=== PATIENT | male | born 1970 | race Caucasian/White ===

== ENCOUNTER 2017-09-13 11:33 | Emergency (ER) | payer BC, SELFPAY | END 2017-09-13 13:14 | disposition left against medical advice (07) | LOC: ER 11:56 → UTC 12:47 | PROVIDERS: Emergency Provider Nurse Practitioner; PCP Emergency Medicine | DX: Z53.29 Procedure and treatment not carried out because of patient's decision for other reasons (principal) ==

== ENCOUNTER → 2017-12-11 16:37 | Outpatient (REF) | payer BC, SELFPAY ==
[2017-12-11 18:47] LABS: Basophils # 0.1 K/mm3 (0-0.2); Basophils % 0.6 % (0.1-2.0); Eosinophils # 0.3 K/mm3 (0.0-0.4); Eosinophils % 3.1 % (0.1-12.0); Hematocrit 49.1 % (42.0-52.0); Hemoglobin 16.2 g/dL (14.1-18.0); Lymphocytes # 2.1 K/mm3 (0.7-4.5); Lymphocytes % 25.2 K/mm3 (10-50); Mean Corpuscular HGB Conc 32.9 g/dL (31.8-35.4); Mean Corpuscular Hemoglobin 30.5 pg (27.0-31.2); Mean Corpuscular Volume 92.5 fl (80-94); Mean Platelet Volume 8.9 fl (7.4-10.4); Monocytes # 0.4 K/mm3 (0.1-1.0); Monocytes % 4.8 % (1.7-9.3); Neutrophils # 5.6 K/mm3 (1.8-7.8); Neutrophils % 66.3 % (37.0-80.0); Platelet Count 223 K/mm3 (142-424); Red Blood Count 5.31 M/mm3 (4.60-6.20); Red Cell Distribution Width 12.9 % (11.5-17.5); White Blood Count 8.5 K/mm3 (4.8-10.8)
[2017-12-11 19:17] LABS: Alanine Aminotransferase 36 U/L (12-78); Albumin Level 4.1 gm/dL (3.4-5.0); Albumin/Globulin Ratio 1.2 (1.1-1.8); Alkaline Phosphatase 66 U/L (46-116); Anion Gap 14.1 mEq/L (5-15); Aspartate Amino Transferase 24 U/L (15-37); Bilirubin,Total 0.3 mg/dL (0.2-1.0); Blood Urea Nitrogen 14 mg/dL (7-18); Calcium 9.2 mg/dL (8.5-10.1); Carbon Dioxide 28 mmol/L (21.0-32.0); Chloride 103 mmol/L (98-107); Creatinine,Serum 1.11 mg/dL (0.70-1.30); Estimated Glomerular Filt Rate 72 ml/min (>60); GFR (African American) 87 ML/MIN (>60); Globulin 3.4 gm/dl (1.3-3.2); Glucose 81 mg/dL (74-106); Potassium 4.1 mmoL/L (3.5-5.1); Sodium 141 mmol/L (136-145); Total Protein,Serum 7.5 gm/dL (6.4-8.2)
[2017-12-13 05:14] LABS: Hep A Ab, IgM Negative (Negative); Hepatitis B Core Antibody IgM Negative (Negative); Hepatitis B Surface Antigen Negative (Negative)
[2017-12-13 16:33] LABS: HIV Screen 4th Generation wRfx Non Reactive (Non Reactive); Hepatitis C Antibody 0.1 s/co ratio (0.0-0.9); Rapid Plasma Reagin Ab Titer Non Reactive (NonRea<1:1)
[2017-12-14 09:11] LABS: Neisseria gonorrhoeae, NAA Negative (Negative)
== END ==
LOC: LAB 16:37
PROVIDERS: Visit Provider Emergency Medicine
DX: R53.83 Other fatigue (principal); Z20.2 Contact with and (suspected) exposure to infections with a predominantly sexual mode of transmission
CPT/HCPCS: 80053; 80074; 85025; 86592; 86703; 87491; 87591; G0432

== ENCOUNTER → 2018-08-15 10:32 | Outpatient (CLI) | payer BC, SELFPAY ==
--- NOTE | 2018-08-15 10:35 | XR_ITS ---
XR shoulder RT min 2V HISTORY: ITS.REASON: Rt shoulder and neck pain ORDERING PHYSICIAN: Lisbeth Perez MD PATIENT AGE: 48 years Comparison: 10/17/2016 FINDINGS: No fracture or dislocation. No lytic or blastic change. There are mild hypertrophic changes of the acromioclavicular joint. There is an old right second rib fracture laterally. IMPRESSION: 1. No change with no acute finding. 2. Mild acromioclavicular arthropathy with hypertrophy. 3. Old right second rib fracture
== END ==
PROVIDERS: PCP Emergency Medicine; Visit Provider Orthopaedic Surgery
DX: M25.511 Pain in right shoulder (principal)
CPT/HCPCS: 73030

== ENCOUNTER → 2018-08-21 16:12 | Outpatient (CLI) | payer BC, SELFPAY ==
--- NOTE | 2018-08-21 16:14 | MR_ITS ---
MR cervical spine wo con, MR 3-d myelogram/MRCP HISTORY: Neck pain with bilateral shoulder pain ITS.REASON: neck pain ORDERING PHYSICIAN: John Uribe MD PATIENT AGE: 48 years Comparison: None TECHNIQUE: Standard multiplanar multiecho sequences are performed without contrast. 3-D MIP and myelographic images are also rendered and reviewed FINDINGS: There is normal alignment. The craniocervical junction has an unremarkable appearance. C2-C3: Unremarkable. C3-C4: Bulging disc is present eccentric toward the left with a disc osteophyte complex in the left uncovertebral region causing left foraminal narrowing. C4-C5: Bulging disc with small central disc protrusion abutting the anterior aspect of the cord with only minimal flattening of the cord. C5-C6: Mild degenerative disc disease with bulging disc with a small broad-based right paracentral disc protrusion with right lateral recess narrowing and minimal flattening of the cord anteriorly. There is bilateral uncovertebral hypertrophy with bilateral foraminal narrowing greater on the left. There is narrowing of the canal at this level measuring 9 mm. C6-C7: Degenerative disc disease with bulging disc and a small broad-based central and left paracentral disc extrusion which is causing mild anterior impingement upon the left aspect of the cord with mild flattening of the cord and moderate left lateral recess and foraminal narrowing. Canal stenosis is present at this level is 8 mm. C7-T1: There is degenerative disc disease with bulging disc with bulging disc and a small left paracentral disc protrusion. This is causing moderate left lateral recess narrowing with left-sided foraminal narrowing. T1-T2: Sagittal images show a central disc herniation with mild superior extrusion. Axial images were not obtained of this area. Consider MRI of the T-spine for further evaluation as are also appears to be a central disc protrusion at T2-T3. IMPRESSION: Abnormal MRI of the cervical spine with multilevel cervical spondylosis with bulging discs, disc osteophyte complexes, and disc protrusions. C3-C4: Bulging disc is present eccentric toward the left with a disc osteophyte complex in the left uncovertebral region causing left foraminal narrowing. C4-C5: Bulging disc with small central disc protrusion abutting the anterior aspect of the cord with only minimal flattening of the cord. C5-C6: Mild degenerative disc disease with bulging disc with a small broad-based right paracentral disc protrusion with right lateral recess narrowing and minimal flattening of the cord anteriorly. There is bilateral uncovertebral hypertrophy with bilateral foraminal narrowing greater on the left. There is narrowing of the canal at this level measuring 9 mm. C6-C7: Degenerative disc disease with bulging disc and a small broad-based central and left paracentral disc extrusion which is causing mild anterior impingement upon the left aspect of the cord with mild flattening of the cord and moderate left lateral recess and foraminal narrowing. Canal stenosis is present at this level is 8 mm. C7-T1: There is degenerative disc disease with bulging disc with bulging disc and a small left paracentral disc protrusion. This is causing moderate left lateral recess narrowing with left-sided foraminal narrowing. T1-T2: Sagittal images show a central disc herniation with mild superior extrusion. Axial images were not obtained of this area. Consider MRI of the T-spine for further evaluation as are also appears to be a central disc protrusion at T2-T3.
== END ==
PROVIDERS: PCP Emergency Medicine; Visit Provider Emergency Medicine
DX: M54.12 Radiculopathy, cervical region (principal)
CPT/HCPCS: 72141; 76376

== ENCOUNTER → 2018-09-17 16:05 | Outpatient (CLI) | payer BC, SELFPAY ==
--- NOTE | 2018-09-17 16:07 | MR_ITS ---
MR thoracic spine wo con HISTORY: Bilateral shoulder pain and mid back pain. X 15 Years. No HX back surgery. ITS.REASON: r/o disc bulge as recommended on MRI Cspine ORDERING PHYSICIAN: John Uribe MD PATIENT AGE: 48 years Comparison: 08/21/2018 TECHNIQUE: Standard multiplanar multiecho sequences are performed without contrast. 3-D MIP and myelographic images are also rendered and reviewed FINDINGS: There is normal alignment. No obvious fracture or dislocation evident. Multilevel abnormalities are present and described below. C7-T1: Degenerative disc disease with broad-based central and left paracentral disc protrusion versus disc osteophyte complex eccentric toward the left causing bilateral lateral recess narrowing and bilateral foraminal narrowing. This is more extensive on the left there is narrowing of the canal at this level at 10 mm. T1-T2: Degenerative disc disease with bulging disc along with a broad-based right paracentral disc protrusion/disc osteophyte complex causing severe right-sided lateral recess narrowing and moderate right-sided foraminal narrowing. T2-T3: Degenerative disc disease with broad-based central and right paracentral disc protrusion versus disc osteophyte complex with narrowing of the canal severe right-sided lateral recess narrowing along with moderate right-sided foraminal narrowing. There is some impingement upon the cord anteriorly with mild flattening of the cord T3-T4: Degenerative disc disease with small central disc protrusion without impingement. T4-T5: Minimal right paracentral disc protrusion/disc osteophyte complex. T5-T6: Unremarkable. T6-T7: Small right paracentral disc protrusion with minimal superior extrusion. There is some mild flattening of the anterior right aspect of the cord from this disc. T7-T8: Degenerative disc disease with a small broad-based left paracentral disc osteophyte complex with mild flattening of the cord anteriorly on the left. T8-T9: Unremarkable. T9-T10: There is a broad-based central and right paracentral disc protrusion with minimal superior extrusion of the disc. There is some minimal flattening of the cord anteriorly on the right. T10-T11: Degenerative disc disease with mild facet and ligamentum flavum hypertrophy with moderate bilateral foraminal narrowing. T11-T12: Unremarkable other than mild degenerative disc disease. IMPRESSION: Abnormal MRI of the thoracic spine with multilevel degenerative disc disease along with disc osteophyte complexes and disc herniations with narrowing of the canal along with some flattening of the cord at multiple levels. Please see above for detailed description at each level.
== END ==
PROVIDERS: PCP Emergency Medicine; Visit Provider Emergency Medicine
DX: M25.511 Pain in right shoulder (principal); M50.20 Other cervical disc displacement, unspecified cervical region; M54.2 Cervicalgia
CPT/HCPCS: 72146

== ENCOUNTER → 2018-09-24 13:04 | Outpatient (POV) | payer BC, SELFPAY | PROVIDERS: Visit Provider Specialist | DX: M54.2 Cervicalgia (principal); M54.12 Radiculopathy, cervical region; M25.511 Pain in right shoulder | CPT/HCPCS: 95886; 95908 ==

== ENCOUNTER → 2020-08-26 17:06 | Outpatient (CLI) | payer BC, SELFPAY ==
[2020-08-26 17:33] LABS: Basophils # 0.1 K/mm3 (0-0.2); Basophils % 0.8 % (0.1-2.0); Eosinophils # 0.3 K/mm3 (0.0-0.4); Eosinophils % 3.5 % (0.1-12.0); Hematocrit 47.3 % (42.0-52.0); Hemoglobin 15.8 g/dL (14.1-18.0); Lymphocytes # 1.8 K/mm3 (0.7-4.5); Mean Corpuscular HGB Conc 33.4 g/dL (31.8-35.4); Mean Corpuscular Hemoglobin 30.8 pg (27.0-31.2); Mean Corpuscular Volume 92.2 fl (80-94); Mean Platelet Volume 8.7 fl (7.4-10.4); Monocytes # 0.4 K/mm3 (0.1-1.0); Neutrophils # 6.8 K/mm3 (1.8-7.8); Neutrophils % 72.6 % (37.0-80.0); Platelet Count 255 K/mm3 (142-424); Red Blood Count 5.12 M/mm3 (4.60-6.20); Red Cell Distribution Width 14.1 % (11.5-17.5); White Blood Count 9.4 K/mm3 (4.8-10.8)
[2020-08-26 17:52] LABS: Alanine Aminotransferase 61 U/L (12-78); Albumin Level 4.5 g/dl (3.5-5.0); Albumin/Globulin Ratio 1.4 (1.1-1.8); Alkaline Phosphatase 99 U/L (38-126); Anion Gap 16.1 mEq/L (5-15); Aspartate Amino Transferase 63 U/L (17-59); Bilirubin,Total 0.5 mg/dl (0.2-1.3); Blood Urea Nitrogen 12 mg/dl (9-20); Calcium 9.8 mg/dl (8.4-10.2); Carbon Dioxide 26 mmol/L (22.0-30.0); Chloride 103 mmol/L (98-107); Chol/HDL Ratio 5.8 (1-3.5); Cholesterol 204 mg/dl (140-200); Estimated Glomerular Filt Rate 80 ml/min (>60); GFR (African American) 97 ML/MIN (>60); Globulin 3.2 g/dL (1.3-3.2); Glucose 160 mg/dl (74-100); HDL Cholesterol 35 mg/dl (40-60); Potassium 4.1 mmoL/L (3.5-5.1); Sodium 141 mmol/L (136-145); Total Protein,Serum 7.7 g/dl (6.3-8.2); Triglycerides 267 mg/dl (30-150); VLDL Cholesterol 53 mg/dL (0-40)
[2020-08-26 18:03] LABS: Direct LDL Cholesterol 142.19 mg/dL (100-129)
[2020-08-26 18:08] LABS: 25-OH Vitamin D, Total 36.7 ng/mL (30-100)
[2020-08-26 18:09] LABS: Free T4 (Free Thyroxine) 1.16 ng/dl (0.78-2.19)
[2020-08-26 18:22] LABS: Thyroid Stimulating Hormone 1.14 uIU/mL (0.465-4.68)
[2020-08-27 11:38] LABS: Hemoglobin A1C 7.2 % (4.0-6.0)
== END ==
PROVIDERS: Visit Provider Emergency Medicine
DX: R73.09 Other abnormal glucose (principal); E66.3 Overweight; E55.9 Vitamin D deficiency, unspecified
CPT/HCPCS: 80053; 80061; 82306; 83036; 84439; 84443; 85025